=== PATIENT | male | born 1985 | race Two or more races ===

== ENCOUNTER 2016-10-14 05:51 | Emergency (ER) | payer SELFPAY ==
[2016-10-14 06:07] VITALS: BP 121/71; BMI 24.3
[2016-10-14] MEDS ORDERED: XYLOCAINE 1 % (PLAIN) ONE (06:19)
[2016-10-14] MEDS ORDERED: ROCEPHIN VIAL 1 GM IM ONE (06:39)
[2016-10-14] MEDS ORDERED: ADACEL TDaP IM ONE ×2 (06:39→06:47)
--- NOTE | 2016-10-14 06:45 | DR.GENAD ---
HPI - Complaint/Symptoms Chief Complaint Doctors Comments: Patient cut his right thumb on glass while changing a broken window at home about 11 hours ago. Spouse states she has been working with him all night trying to control the bleeding and get him to come to the emergency room but he refused to come. States she has been dressing his tumb and finally put a tight dressing that stopped the bleeding but around 2am he complained that it cut off his circulation and he could not feel his hand and she removed the dressing and the bleeding begin again. states he can move his fingers well. states he is unsure of his last tetanus. He denies chest pain, SOB, cold or cough. States the pain is 5 of 10. States he can move his fingers well. Chief Complaint:: cut right thumb with glass - Nurses notes reviewed Nurses Notes Review: Yes - Source History Provided: Patient - Mode of Arrival Mode of Arrival: Ambulatory - Timing Onset of Chief Complaint: 10/13/16 Came on: Suddenly - Duration Duration: Constant How lon Duration: Hours - Location Location: right dorsal thumb - Severity Severity: Moderate - Modifying Factors Worsens:: movement Improves:: nothing PMH - PMH Past Medical History: No Past Surgical History: No - Family History History of Family Medical Conditions: No - Social History Does patient currently use any type of tobacco product: Yes Have you used tobacco products in the last 12 months: No Type of Tobacco Use: Cigarettes How many years tobacco product used: 12 Does any household member use tobacco: No Alcohol Use: Occasionally Do you use any recreational Drugs:: No Lives With: Spouse Lives Where: Home - infectious screening In the last 2 months have you had wt loss of >10#?: NO Have you had fever, night sweats or hemotysis?: No Have you traveled outside the country in the last 6 months?: No Isolation: Standard ROS - Review of Systems Constitutional: No Symptoms Reported. negative: See HPI, Chills, Diaphoresis, Fever, Malaise, Weakness, Irritable, Fatigue, Loss of Appetite, Other Eyes: No Symptoms Reported. negative: See HPI, Eye Pain, Blurred Vision, Tearing, Discharge, Photophobia, Diplopia, Other ENTM: No Symptoms Reported. negative: See HPI, Ear Pain, Ear Discharge, Pulling on Ears, Hearing Loss, Nose Pain, Nose Discharge, Epistaxis, Nose Congestion, Mouth Pain, Mouth Swelling, Loose Teeth, Drooling, Throat Pain, Throat Swelling, Ear Foreign Body Respiratoy: No Symptoms Reported Cardiovascular: No Symptoms Reported. negative: See HPI, Chest Pain, Edema, Palpitations, Syncope, Cyanosis, Skin Mottling, Other Gastrointestinal/Abdominal: No Symptoms Reported. negative: See HPI, Abdominal Pain, Constipation, Diarrhea, Nausea, Vomiting, Food Intolerance, Other Genitourinary: No Symptoms Reported. negative: See HPI, Discharge, Dysuria, Frequency, Hematuria, Pain, Bleeding, Other Neurological: No Symptoms Reported Musculoskeletal: No Symptoms Reported, Left, Hand (thumb with 3 cm ellipical laceration with spurting blood) Integumentary: Wound (left thumb with 3 cm laceration spurting bright red blood) Hematologic/Lymphatic: No Symptoms Reported Endocrine: No Symptoms Reported Psychiatric: No Symptoms Reported. negative: See HPI, Anxiety, Depression, Hallucinations, Excessive crying, Suicidal, Other PE - Vital Signs Vitals: Temperature 97.5 F Pulse Rate 72 Respiratory Rate 20 Blood Pressure 121/71 O2 Sat by Pulse Oximetry 97 - General Limitations: No Limitations General Appearance: Alert, In Distress (moderate) - Head Head Exam: Normal Inspection, Atraumatic, Normocephalic - Eyes Eye exam: Normal Appearance, PERRL, EOMI. negative: Scleral Icterus, Conjunctival Injection, Nystagmus, Miosis, Mydrasis, Periorbital Swelling, Periorbital Tenderness, Other - ENT ENT Exam: Normal Exam, Normal Oropharynx, Normal External Ear Exam, Mucous Membranes Moist, TM's Normal Bilaterally External Ear Exam: Normal External Inspection. negative: Auricular Hematoma, Auricular Trauma, Mastoid Tenderness, Pain with Movement, External Tenderness, Periauricular Adenopathy, Other TM/Canal Exam: Bilateral Normal Nose Exam: Normal Nose Exam Mouth Exam: Normal Inspection. negative: Drooling, Trismus, Lip Swelling, Tongue Elevation, Tongue Swelling, Laceration, Other Throat Exam: Normal Inspection. negative: Tonsillar Erythema, Tonsillomegaly, Tonsillar Exudate, R Peritonsillar Mass, L Peritonsillar Mass, Muffled Voice, Other - Neck Neck Exam: Normal Inspection, Full ROM, Trachea Midline. negative: Tenderness, Meningismus, Lymphadenopathy, Thyromegaly, Other - Chest Chest Inspection: Normal Inspection, Symmetric Chest Wall Rise. negative: Tenderness, Rash, Abscess, Other - Respiratory Respiratory Exam: Normal Lung Sounds Bilat Respiratory Exam: Bilateral Clear to Auscultation - Cardiovascular Cardiovascular Exam: Regular Rate, Normal Rhythm, Normal Heart Sounds. negative : Bradycardia, Tachycardia, Irregular Rhythm, Systolic Murmur, Diastolic Murmur , Rubs, Gallop, Clicks, JVD, +S1, +S2, +S3, +S4, Other - Abdominal Exam Abdominal Exam: Normal Inspection, Normal Bowel Sounds, Soft. negative: Distention, Tenderness, Guarding, Rebound, Rigidity, Dimnished Bowel Sounds, Hyperactive Bowel Sounds, Hypoactive Bowel Sounds, Organomegaly, Trauma, Incision, Ascites, Mass, Bruit, Pulsatile Mass, Hernia, Other Abdominal Tenderness: negative: RUQ, RLQ, LUQ, LLQ, Epigastrium, Suprapubic, Diffuse, Mild, Moderate, Severe, Other - Extremities Extremities Exam: Normal Inspection, Full ROM, Tenderness (right thumb with 3 cm laceration), Normal Capillary Refill. negative: Edema, Joint Swelling, Calf Tenderness, Other - Back Back Exam: Normal Inspection, Full ROM. negative: Tenderness, (R) CVA Tenderness, (L) CVA Tenderness, Muscle Spasm, Paraspinal Tenderness, Vertebral Tenderness, Rashes, (R) Sciatic Notch Tenderness, (L) Sciatic Notch Tendern, (R ) Straight Leg Raise, (L) Straight Leg Raise, Other - Neurologic Neurological Exam: Alert, Oriented X3, CN II-XII Intact, Normal Gait, Reflexes Normal - Psychiatric Psychiatric Exam: Normal Affect, Normal Mood. negative: Depressed, Agitated, Anxious, Flat Affect, Manic, Homicidal Ideation, Suicidal Ideation, Other - Skin Skin Exam: Warm, Dry, Intact, Normal Color Procedures - Laceration/Wound Repair Right Finger Wound Length (cm): 3 Wound's Depth, Shape: Irregular Wound Explored: no foreign body removed Betadine Prep?: Yes Anesthesia: 1% Lidocaine Volume Anesthetic (ccs): 4 Wound Repaired With: sutures Suture Size/Type: 4:0, Nylon Number of Sutures: 6 Layer Closure?: No Sterile Dressing Applied?: Yes Splint Applied?: No Sling Applied?: No - Diagnosis Discharge Problem: Contusion of hand Laceration of right thumb Qualifiers: Encounter type: initial encounter Qualified Code(s): S61.011A - Laceration without foreign body of right thumb without damage to nail, initial encounter - Discharge Plan Disposition: HOME, SELF-CARE Condition: Stable Prescriptions: Acetaminophen/Codeine Tab [TYLENOL w/CODEINE #3 (300 MG/30 MG) *] 1 tab PO Q4- 6H PRN #21 tab PRN Reason: Pain Cephalexin [KEFLEX CAP 500 MG *] 500 mg PO TID #30 cap - Follow ups/Referrals Follow ups/Referrals: TAMAR,None [Primary Care Provider] - 3 days IVONNE GUALLPA [STAFF PHYSICIAN] - 3 days - Instructions Instructions: Laceration Care, Adult, [id number], Sutured Wound Care, Easy-to -Read, Laceration Care, Adult
[2016-10-14] MEDS ORDERED: ROCEPHIN VIAL 1 GM ONE (06:47)
[2016-10-14] MEDS ORDERED: NEOSPORIN OINT TOP ONE (06:53)
[2016-10-14] MEDS ORDERED: NEOSPORIN OINT ONE (06:54)
== END 2016-10-14 07:25 | disposition home or self-care (01) ==
LOC: ER 05:51
PROC: 0XQN0ZZ Repair Right Index Finger, Open Approach (ICD-10-PCS; principal; 2016-10-14)
DX: S61.011A Laceration without foreign body of right thumb without damage to nail, initial encounter (principal); S60.221A Contusion of right hand, initial encounter; W25.XXXA Contact with sharp glass, initial encounter; Y92.9 Unspecified place or not applicable
CPT/HCPCS: 12002; 90471; 96372; 99282; J0696; J2001

== ENCOUNTER 2017-04-24 09:10 | Emergency (ER) | payer SELFPAY ==
[2017-04-24 09:20] VITALS: BMI 27.4
--- NOTE | 2017-04-24 09:43 | DR.CP ---
HPI - Time Seen Time seen: 09:15 - PCP Primary Care Physician: ALINA - Complaint Chief Complaint:: CHEST PAIN SINCE APPROX. 6AM, DENIES ANY LEFT ARM OR JAW PAIN. PT STATED HE DID HAVE SOME NAUSEA THIS MORNING. DENIES ANY VOMITTING. PT STATES THIS CHEST PAIN HAS BEEN BOTHERING HIM FOR SEVERAL MONTHS NOW OFF AND ON. Patient with a history of chest pain he was seen by Dr Millard on last month.He was advised to follow up as needed. Patient came to the ED for evaluation. - Source History Provided: Patient - Mode of Arrival Mode of Arrival: Ambulatory - Timing Onset of Chief Complaint: 04/24/17 - Location Chest Pain Radiation Location: None - Associated Signs and Symptoms Associated Signs and Symptoms: Nausea/Vomiting PMH - PMH Past Medical History: No Past Medical History: Angina Past Surgical History: No - Family History History of Family Medical Conditions: Yes - Social History Does patient currently use any type of tobacco product: Yes Have you used tobacco products in the last 12 months: Yes Type of Tobacco Use: Cigarettes Does any household member use tobacco: No Alcohol Use: None Do you use any recreational Drugs:: No Lives With: Spouse Lives Where: Home - infectious screening In the last 2 months have you had wt loss of >10#?: NO Have you had fever, night sweats or hemotysis?: No Have you traveled outside the country in the last 6 months?: No ROS - Review of Systems Eyes: No Symptoms Reported ENTM: No Symptoms Reported Respiratoy: No Symptoms Reported Cardiovascular: No Symptoms Reported Gastrointestinal/Abdominal: No Symptoms Reported Genitourinary: No Symptoms Reported Neurological: No Symptoms Reported Musculoskeletal: No Symptoms Reported Integumentary: No Symptoms Reported Hematologic/Lymphatic: No Symptoms Reported Endocrine: No Symptoms Reported Psychiatric: No Symptoms Reported All Other Systems: Reviewed and Negative PE - Vitals Vitals: Temperature 98.7 F Pulse Rate 76 Respiratory Rate 20 Blood Pressure 146/88 O2 Sat by Pulse Oximetry 96 - General Limitations: No Limitations General Appearance: Alert - Head Head Exam: Normal Inspection - Eyes Eye exam: Normal Appearance, PERRL, EOMI - ENT ENT Exam: Normal Exam, Normal Oropharynx - Chest Chest Inspection: Normal Inspection, Symmetric Chest Wall Rise - Respiratory Respiratory Exam: Normal Lung Sounds Bilat Respiratory Exam: Bilateral Clear to Auscultation - Cardiovascular Cardiovascular Exam: Regular Rate, Normal Rhythm Pulse: Normal, Radial Edema: Normal - Abdominal Exam Abdominal Exam: Normal Inspection Abdominal Tenderness: negative: RUQ, RLQ, LUQ, LLQ, Epigastrium, Suprapubic, Diffuse, Mild, Moderate, Severe, Other - Extremities Extremities Exam: Normal Inspection - Back Back Exam: Normal Inspection - Neurologic Neurological Exam: Alert, Oriented X3, CN II-XII Intact - Psychiatric Psychiatric Exam: Normal Affect - Skin Skin Exam: Warm, Dry, Intact MDM - Additional Information Findings: Dr Millard office contacted @[phone]-will see pt Saturday AM Course - Reevaluation 1st: Improved ROR - Labs Reviewed Result Diagrams: 04/24/17 10:05 04/24/17 10:05 Laboratory: WBC 9.8 X10^3/uL (3.6-10.0) 04/24/17 10:05 RBC 5.07 X10^6/uL (4.7-6.0) 04/24/17 10:05 Hgb 15.7 g/dL (13.5-18.0) 04/24/17 10:05 Hct 45.0 % (42.0-54.0) 04/24/17 10:05 MCV 88.8 fL (80.0-100.0) 04/24/17 10:05 MCH 31.0 pg (27.0-34.0) 04/24/17 10:05 MCHC 35.0 g/dL (33.0-35.0) 04/24/17 10:05 RDW 13.7 % (11.6-16.5) 04/24/17 10:05 Plt Count 240 X10^3/uL (150.0-450.0) 04/24/17 10:05 MPV 8.7 fL (7.4-11.0) 04/24/17 10:05 Neut % 83.0 % (42.0-75.0) H 04/24/17 10:05 Lymph % 13.1 % (21.0-51.0) L 04/24/17 10:05 Wilkin % 3.2 % (0.0-13.0) 04/24/17 10:05 Eos % 0.1 % (0.9-2.9) L 04/24/17 10:05 Baso % 0.6 % (0.2-1.0) 04/24/17 10:05 Neut # 8.1 x10^3/uL (2.2-4.8) H 04/24/17 10:05 Lymph # 1.3 X10^3/uL (1.3-2.9) 04/24/17 10:05 Wilkin # 0.3 x10^3/uL (0.3-0.8) 04/24/17 10:05 Eos # 0.0 x10^3/uL (0.0-0.2) 04/24/17 10:05 Baso # 0.1 X10^3/uL (0.0-0.1) 04/24/17 10:05 Absolute Nucleated RBC 0.0 /100WBC 04/24/17 10:05 INR Target Range - 04/24/17 10:05 INR 0.94 (0.8-1.3) 04/24/17 10:05 Sodium 135 mmol/L (136-145) L 04/24/17 10:05 Corrected Sodium TNP 04/24/17 10:05 Potassium 3.9 mmol/L (3.5-5.1) 04/24/17 10:05 Chloride 98 mmol/L (98-107) 04/24/17 10:05 Carbon Dioxide 26.1 mmol/L (21-32) 04/24/17 10:05 BUN 8 mg/dL (7-18) 04/24/17 10:05 Creatinine 0.67 mg/dL (0.70-1.30) L 04/24/17 10:05 Est GFR (MDRD) Af Amer > 60 (>60) 04/24/17 10:05 Est GFR (MDRD) Non-Af > 60 (>60) 04/24/17 10:05 Glucose 98 mg/dL (65-99) 04/24/17 10:05 Calcium 9.4 mg/dL (8.5-10.1) 04/24/17 10:05 Corrected Calcium TNP 04/24/17 10:05 Magnesium 1.7 mg/dL (1.7-2.9) 04/24/17 10:05 Total Bilirubin 0.50 mg/dL (0.2-1.0) 04/24/17 10:05 AST 27 Units/L (15-37) 04/24/17 10:05 ALT 39 Units/L (12-78) 04/24/17 10:05 Alkaline Phosphatase 73 Units/L (46-116) 04/24/17 10:05 Creatine Kinase 72 Units/L (39-308) 04/24/17 10:05 CK-MB (CK-2) < 1.0 ng/mL (0-4.0) 04/24/17 10:05 CK/CKMB % Calc 1.4 % (<4) 04/24/17 10:05 Troponin I < 0.02 ng/mL (0-1.5) 04/24/17 10:05 Total Protein 8.2 g/dL (6.4-8.2) 04/24/17 10:05 Albumin 4.4 g/dL (3.4-5.0) 04/24/17 10:05 Globulin 3.8 g/dL (2.5-4.5) 04/24/17 10:05 Albumin/Globulin Ratio 1.2 Ratio (1.1-2.1) 04/24/17 10:05 - XRAY XRAY Interpreted by: Radiologist (chest clear) - EKG Rhythm: ST, Afib Block: None Hypertrophy: None - Diagnosis Discharge Problem: Atrial fibrillation Qualifiers: Atrial fibrillation type: unspecified Qualified Code(s): I48.91 - Unspecified atrial fibrillation - Discharge Plan Condition: Stable - Follow ups/Referrals Follow ups/Referrals: LIDA FULLER [Primary Care Provider] - 3 days - Instructions
[2017-04-24] MEDS ORDERED: ASPIRIN ONE (09:55)
[2017-04-24] MEDS ORDERED: NS 1000 ML 1,000 ML IV SCH (10:00)
[2017-04-24] MEDS ORDERED: ASPIRIN PO SCH (10:00)
[2017-04-24] MEDS: NITROSTAT SL PRN ×2 (10:00→10:05)
[2017-04-24] MEDS ORDERED: NS 1000 ML 1,000 ML ONE (10:04)
[2017-04-24] MEDS ORDERED: ZOFRAN INJ 4 MG VIAL IVP ONE (10:07)
[2017-04-24] MEDS ORDERED: ZOFRAN INJ 4 MG VIAL ONE (10:07)
[2017-04-24] MEDS ORDERED: MORPHINE SULFATE INJ 4 MG IVP ONE (10:19)
[2017-04-24 10:20] LABS: BASOPHILS # (AUTO) 0.1 X10^3/uL (0.0-0.1); BASOPHILS % (AUTO) 0.6 % (0.2-1.0); EOSINOPHILS % (AUTO) 0.1 % (0.9-2.9); HEMOGLOBIN 15.7 g/dL (13.5-18.0); LYMPHOCYTES # (AUTO) 1.3 X10^3/uL (1.3-2.9); LYMPHOCYTES % (AUTO) 13.1 % (21.0-51.0); MEAN CORPUSCULAR VOLUME 88.8 fL (80.0-100.0); MEAN PLATELET VOLUME 8.7 fL (7.4-11.0); MONOCYTES # (AUTO) 0.3 x10^3/uL (0.3-0.8); MONOCYTES % (AUTO) 3.2 % (0.0-13.0); NEUTROPHILS # (AUTO) 8.1 x10^3/uL (2.2-4.8); PLATELET COUNT 240 X10^3/uL (150.0-450.0); RED BLOOD COUNT 5.07 X10^6/uL (4.7-6.0); RED CELL DISTRIBUTION WIDTH 13.7 % (11.6-16.5); WHITE BLOOD COUNT 9.8 X10^3/uL (3.6-10.0)
--- NOTE | 2017-04-24 10:20 | RAD ---
HISTORY: Chest pain and shortness of breath Study: Portable AP upright chest Comparison: June 07, 2016 Findings: The trachea is midline. The cardiac silhouette is unremarkable. The lungs are clear without focal i nfiltrate or effusion. The bony thorax is unremarkable. IMPRESSION: 1. No acute cardiopulmonary disease. Reported By:
[2017-04-24] MEDS ORDERED: MORPHINE SULFATE INJ 4 MG ONE (10:22)
[2017-04-24 10:36] LABS: BLOOD UREA NITROGEN 8 mg/dL (7-18); CALCIUM 9.4 mg/dL (8.5-10.1); CARBON DIOXIDE 26.1 mmol/L (21-32); CHLORIDE 98 mmol/L (98-107); CREATININE 0.67 mg/dL (0.70-1.30); SODIUM 135 mmol/L (136-145); TROPONIN I < 0.02 ng/mL (0-1.5); eGFR BLACK RACES > 60 (>60); eGFR NON BLACK RACES > 60 (>60)
[2017-04-24 10:41] LABS: ALANINE AMINOTRANSFERASE 39 Units/L (12-78); ALBUMIN 4.4 g/dL (3.4-5.0); ALKALINE PHOSPHATASE 73 Units/L (46-116); ASPARTATE AMINO TRANSFERASE 27 Units/L (15-37); CKMB % 1.4 % (<4); CREATINE KINASE 72 Units/L (39-308); CREATINE KINASE MB < 1.0 ng/mL (0-4.0); MAGNESIUM 1.7 mg/dL (1.7-2.9); TOTAL PROTEIN 8.2 g/dL (6.4-8.2)
[2017-04-24 11:17] VITALS: BP 143/84
== END 2017-04-24 11:41 | disposition home or self-care (01) ==
LOC: ER 09:31
DX: I48.91 Unspecified atrial fibrillation (principal)
CPT/HCPCS: 36415; 71010; 80053; 82550; 82553; 83735; 84484; 85025; 85610; 93005; 93010; 96365; 96367; 96374; 96375; 99283; A4222; J2270; J2405

== ENCOUNTER 2017-05-09 12:32 | Emergency (ER) | payer SELFPAY ==
[2017-05-09 12:40] VITALS: BP 127/78; BMI 26.6
--- NOTE | 2017-05-09 13:07 | DR.GENAD ---
HPI - PCP Primary Care Physician: DAHIANA - Complaint/Symptoms Chief Complaint:: PT C/O SWELLING IN HIS RT GROIN. PT STATES HE HAD A HEART CATH DONE LAST SATURDAY AND SINCE SATURDAY A KNOT HAS CAME UP AROUND THE INCISION SITE WITH LOTS OF SWELLING. PT STATES HE CONTACT HIS ACCOUNT TECHNICIAN AND THEY WERE CONCERNED ABOUT A BLOOD CLOT. - Source History Provided: Patient - Mode of Arrival Mode of Arrival: Ambulatory - Timing Onset of Chief Complaint: 05/07/17 PMH - PMH Past Medical History: Yes Past Medical History: Angina Past Surgical History: Yes Past Surgical History Comment: HEART CATH 05/03/17 - Family History History of Family Medical Conditions: No - Social History Does any household member use tobacco: No Alcohol Use: None Do you use any recreational Drugs:: No Lives With: Family Lives Where: Home - infectious screening In the last 2 months have you had wt loss of >10#?: NO Have you had fever, night sweats or hemotysis?: No Have you traveled outside the country in the last 6 months?: No Isolation: Standard ROS - Review of Systems Eyes: No Symptoms Reported ENTM: No Symptoms Reported Respiratoy: No Symptoms Reported Cardiovascular: No Symptoms Reported Gastrointestinal/Abdominal: No Symptoms Reported Genitourinary: No Symptoms Reported Neurological: No Symptoms Reported Musculoskeletal: No Symptoms Reported Integumentary: No Symptoms Reported, Other (ecchymosis in right inguinal area with one single lymph node) Hematologic/Lymphatic: No Symptoms Reported Endocrine: No Symptoms Reported Psychiatric: No Symptoms Reported All Other Systems: Reviewed and Negative PE - Vital Signs Vitals: Temperature 98.4 F Pulse Rate 61 Respiratory Rate 20 Blood Pressure [Right Arm] 143/84 Blood Pressure 127/78 O2 Sat by Pulse Oximetry 96 - General Limitations: No Limitations General Appearance: Alert - Head Head Exam: Normal Inspection, Atraumatic - Eyes Eye exam: Normal Appearance, PERRL, EOMI - ENT ENT Exam: Normal Exam External Ear Exam: Normal External Inspection TM/Canal Exam: Bilateral Normal Nose Exam: Normal Nose Exam Mouth Exam: Normal Inspection Throat Exam: Normal Inspection - Neck Neck Exam: Normal Inspection - Chest Chest Inspection: Normal Inspection - Respiratory Respiratory Exam: Normal Lung Sounds Bilat Respiratory Exam: Bilateral Clear to Auscultation - Cardiovascular Cardiovascular Exam: Regular Rate, Normal Rhythm - Abdominal Exam Abdominal Exam: Normal Inspection, Normal Bowel Sounds Abdominal Tenderness: negative: RUQ, RLQ, LUQ, LLQ, Epigastrium, Suprapubic, Diffuse, Mild, Moderate, Severe, Other - Extremities Extremities Exam: Normal Inspection, Full ROM - Back Back Exam: Normal Inspection - Neurologic Neurological Exam: Alert, Oriented X3, CN II-XII Intact - Psychiatric Psychiatric Exam: Normal Affect, Normal Mood - Skin Skin Exam: Warm, Dry, Intact, Other (Right inguinal area with ecchymosis witn a single normal lymph node, non tender) Course - Treatment Treatment: Dr Horne's Office contacted, results of D Dimer and exam communicated. No evidence of PE. - Reevaluation 1st: Unchanged - Education/Counseling Education/Counseling: Patient, Education Educated On: Treatment, Prognosis, Needs for Follow Up ROR - Labs Reviewed Laboratory Results Reviewed?: Yes (D Dimer 135) Laboratory: D-Dimer 135 ng/mL (0-400) 05/09/17 13:10 - Diagnosis Discharge Problem: Normal physical examination, Negative Pulmonary embolus, D Dimer negative - Discharge Plan Condition: Stable - Follow ups/Referrals Follow ups/Referrals: LIDA FULLER [Primary Care Provider] - 3 days - Instructions
== END 2017-05-09 14:16 | disposition home or self-care (01) ==
LOC: ER 12:43
DX: Z00.6 Encounter for examination for normal comparison and control in clinical research program (principal)
CPT/HCPCS: 36415; 85378; 99282